=== PATIENT | male | born 1955 | race African-American/Black ===

== ENCOUNTER 2018-03-05 12:30 | Emergency (ER) | payer OTHER, MEDICAID ==
[~2018-03-05] VITALS: Ht 188 cm; Wt 84.0 kg
[~2018-03-05 12:30] MED LIST: ACET-3457 PO; ALPR0.252 PO; IBUP-2213 PO; LEVEMIR INSULIN SUBQ; METF500T7 PO; MULT-153; RAMI5CAP1 PO; SIMV20TA6 PO; VALS80CA PO
[2018-03-05 12:51] VITALS: BP 154/81
--- NOTE | 2018-03-05 12:51 | NUR ---
PT AMB TO BED 12
--- NOTE | 2018-03-05 12:52 | NUR ---
62Y/M BIB SELF C/O OF MULTIPLE BUMP ON TOP HIS HEAD. PT STATES "HE HAD BUMPS ON HEAD X 1 MONTH WITH YELLOWISH DISCHARGE; PT DENIES ANY INJURY; PT STATES HE HAS SPREAD THROUGHOUT THE MONTH AND HAS GOTTEN WORST." PT DENIES N/V/D; AAOX4 WITH EVEN AND STEADY GAIT; LUNGS CLEAR BL; HR EVEN AND REGULAR; PT DENIES ANY FEVER, CP, SOB, OR COUGH AT THIS TIME; PATIENT STATES PAIN OF 0/10 AT THIS TIME; VSS; PATIENT POSITIONED FOR COMFORT; HOB ELEVATED; BEDRAILS UP X1; BED DOWN. ER MD MADE AWARE OF PT STATUS. HX; HTN, DM, ACID REFLUX RX; DEXILANT, METFORMIN, DIOVAN
--- NOTE | 2018-03-05 13:00 | NUR ---
Patient being evaluated by physician at bedside.
[2018-03-05 13:28] VITALS: BP 152/80
--- NOTE | 2018-03-05 13:28 | NUR ---
Patient discharged with v/s stable. Written and verbal after care instructions given and explained. Patient alert, oriented and verbalized understanding of instructions. Ambulatory with steady gait. All questions addressed prior to discharge. ID band removed. Patient advised to follow up with PMD. Rx of bactrium ds and grifulvin given. Patient educated on indication of medication including possible reaction and side effects. Opportunity to ask questions provided and answered.
== END 2018-03-05 13:28 | disposition home or self-care (01) ==
LOC: MED 12:30
DX: B35.0 Tinea barbae and tinea capitis (principal); I10 Essential (primary) hypertension; E11.9 Type 2 diabetes mellitus without complications; F03.90 Unspecified dementia, unspecified severity, without behavioral disturbance, psychotic disturbance, mood disturbance, and anxiety; Z79.4 Long term (current) use of insulin; Z79.899 Other long term (current) drug therapy
CPT/HCPCS: 99283

== ENCOUNTER 2018-03-09 18:30 | Emergency (ER) | payer OTHER, MEDICAID ==
[~2018-03-09] VITALS: Ht 190.5 cm; Wt 81.6 kg
[2018-03-09 19:06] VITALS: BP 145/75
--- NOTE | 2018-03-09 21:35 | NUR ---
PT AMBULATED TO ER CHAIR E
[2018-03-09 23:20] VITALS: BP 133/83
--- NOTE | 2018-03-09 23:20 | NUR ---
Patient discharged with v/s stable. Written and verbal after care instructions given and explained. Patient alert, oriented and verbalized understanding of instructions. Ambulatory with steady gait. All questions addressed prior to discharge. ID band removed. Patient advised to follow up with PMD. Rx of Ketoconazole shampoo given. Patient educated on indication of medication including possible reaction and side effects. Opportunity to ask questions provided and answered.
== END 2018-03-09 23:20 | disposition home or self-care (01) ==
LOC: MED 18:30
DX: B35.0 Tinea barbae and tinea capitis (principal); E11.9 Type 2 diabetes mellitus without complications; I10 Essential (primary) hypertension; F03.90 Unspecified dementia, unspecified severity, without behavioral disturbance, psychotic disturbance, mood disturbance, and anxiety; Z88.0 Allergy status to penicillin; Z79.899 Other long term (current) drug therapy
CPT/HCPCS: 99282

== ENCOUNTER 2018-08-09 16:15 | Emergency (ER) | payer OTHER, MEDICAID ==
[~2018-08-09] VITALS: Ht 188 cm; Wt 80.7 kg
[2018-08-09 16:31] VITALS: BP 127/77
[2018-08-09] MEDS ORDERED: MORPHINE SULFATE 4 MG/ML SYR IVP ONE (20:20)
[2018-08-09] MEDS ORDERED: ONDANSETRON 4 MG/2 ML VIAL IVP ONE (20:20)
[2018-08-09] MEDS ORDERED: NACL 0.9% 1,000 ML IV SCH (20:20)
[2018-08-09 21:20] LABS: APPEARANCE,URINE CLEAR (CLEAR); BILIRUBIN,URINE NEGATIVE (NEGATIVE); BLOOD, URINE NEGATIVE (NEGATIVE); COLOR,URINE YELLOW (YELLOW); LEUKOCYTE ESTERASE ,URINE NEGATIVE (NEGATIVE); NITRITE, URINE NEGATIVE (NEGATIVE); PH,URINE 5.5 (5.0-9.0); UGLUCOSE 3+ (NEGATIVE)
[2018-08-09 21:21] LABS: RBC,URINE 0-5 (RARE) /HPF (0-5); WBC,URINE NONE SEEN /HPF (0-5)
[2018-08-09 21:28] LABS: BASOPHILS % (AUTO) 0.1 % (0.0-2.0); EOSINOPHILS % (AUTO) 0.1 % (0.0-4.0); HEMATOCRIT 45.8 % (36-52); HEMOGLOBIN 14.7 g/dL (12.0-18.0); LYMPHOCYTES # (AUTO) 5.7 K/uL (2.0-11.5); LYMPHOCYTES % (AUTO) 39.8 % (20.5-51.1); MEAN CORPUSCULAR HEMOGLOBIN 31 pg (27-31); MEAN CORPUSCULAR HGB CONC 32 g/dL (33-37); MEAN CORPUSCULAR VOLUME 95.5 fL (80-94); MONOCYTES # (AUTO) 0.2 K/uL (0.8-1.0); MONOCYTES % (AUTO) 1.5 % (1.7-9.3); NEUTROPHILS # (AUTO) 8.3 K/uL (1.8-7.7); NEUTROPHILS % (AUTO) 58.5 % (42.2-75.2); PLATELET COUNT (AUTO) 244 K/uL (140-450); RED BLOOD CELL COUNT(AUTO) 4.79 MIL/uL (4.20-6.10); RED CELL DISTRIBUTION WIDTH 13.8 % (11.6-13.7); WHITE BLOOD COUNT (AUTO) 14.2 K/uL (4.8-10.8)
[2018-08-09 21:31] LABS: ALBUMIN 4.4 g/dL (3.4-5.0); ANION GAP 17.4 (8-16); CARBON DIOXIDE 26.5 mmol/L (21-32); CREATININE 0.9 mg/dL (0.7-1.3); POTASSIUM 3.9 mmol/L (3.5-5.1); TOTAL BILIRUBIN 0.8 mg/dL (0.0-1.0)
[2018-08-10] MEDS ORDERED: MORPHINE SULFATE 4 MG/ML SYR IVP ONE (00:35)
[2018-08-10] MEDS ORDERED: ONDANSETRON 4 MG/2 ML VIAL IVP ONE (01:00)
[2018-08-10 03:29] VITALS: BP 159/86
== END 2018-08-10 03:29 | disposition home or self-care (01) ==
LOC: MED 16:15
DX: R10.9 Unspecified abdominal pain (principal); R11.2 Nausea with vomiting, unspecified; R19.7 Diarrhea, unspecified; E11.9 Type 2 diabetes mellitus without complications; I10 Essential (primary) hypertension; F03.90 Unspecified dementia, unspecified severity, without behavioral disturbance, psychotic disturbance, mood disturbance, and anxiety; Z88.0 Allergy status to penicillin; Z79.4 Long term (current) use of insulin
CPT/HCPCS: 36415; 74176; 80053; 81001; 83690; 85025; 96361; 96374; 96375; 96376; 99284; J2270; J2405; J7030

== ENCOUNTER 2018-08-26 12:24 | Emergency (ER) | payer OTHER, MEDICAID ==
[~2018-08-26] VITALS: Ht 180.3 cm; Wt 80.7 kg
[2018-08-26 12:41] VITALS: BP 122/78
[2018-08-26 13:57] VITALS: BP 125/73
== END 2018-08-26 13:45 | disposition home or self-care (01) ==
LOC: MED 12:24
DX: J02.9 Acute pharyngitis, unspecified (principal); E11.9 Type 2 diabetes mellitus without complications; F03.90 Unspecified dementia, unspecified severity, without behavioral disturbance, psychotic disturbance, mood disturbance, and anxiety; I10 Essential (primary) hypertension; Z88.0 Allergy status to penicillin; Z79.84 Long term (current) use of oral hypoglycemic drugs; Z79.899 Other long term (current) drug therapy
CPT/HCPCS: 71045; 99283; Q0092

== ENCOUNTER 2018-10-09 20:05 | Emergency (ER) | payer OTHER, MEDICAID ==
[~2018-10-09] VITALS: Ht 185.4 cm; Wt 78.5 kg
[~2018-10-09 20:05] MED LIST changes: -RAMI5CAP1 PO; +RAMI5CAP32 PO
[2018-10-09 20:14] VITALS: BP 132/72
--- NOTE | 2018-10-09 21:32 | NUR ---
Patient ambulated to bed 8. RN evaluating patient at bedside.
--- NOTE | 2018-10-09 21:32 | NUR ---
TO ED 08 WITH OUT ASSIST
--- NOTE | 2018-10-09 21:55 | NUR ---
Dr. Jackson evaluating patient at bedside.
--- NOTE | 2018-10-09 22:00 | NUR ---
PT PRESENTS TO THE ED C/O LOWER BACK PAIN. PT STATES HE WAS MOVING A BOX TODAY AND FELT A SHARP PAIN IN HIS LOWER BACK; RADIATES DOWN LEFT LEG. DENIES FALL OR TRAUMA. 8/10 PAIN WHEN WALKING. --DENIES N/V/D, CP, SOB OR LOC. SKIN IS PINK/WARM/DRY; AAOX4 WITH EVEN AND STEADY GAIT; LUNGS CLEAR BL; HR EVEN AND REGULAR; VSS; PATIENT POSITIONED FOR COMFORT; HOB ELEVATED; BEDRAILS UP X1; BED DOWN. ER MD MADE AWARE OF PT STATUS. PMH: DM, HTN, HYPERLIPIDEMIA, GERD RX: SEE LIST
[2018-10-09] MEDS ORDERED: fentaNYL 0.05 MG/ML VIAL IM ONE (22:15)
--- NOTE | 2018-10-09 22:34 | NUR ---
Dr. Jackson re-evaluating patient at bedside.
[2018-10-09 22:52] VITALS: BP 127/70
--- NOTE | 2018-10-09 22:52 | NUR ---
Patient discharged with v/s stable. Written and verbal after care instructions given and explained. Patient alert, oriented and verbalized understanding of instructions. Ambulatory with steady gait. All questions addressed prior to discharge. ID band removed. Patient advised to follow up with PMD. Rx of ROBAXIN, TRAMADOL, MEDROL DOSEPAK given. Patient educated on indication of medication including possible reaction and side effects. Opportunity to ask questions provided and answered.
== END 2018-10-09 22:52 | disposition home or self-care (01) ==
LOC: MED 20:05
DX: M54.5 Low back pain (principal); E11.9 Type 2 diabetes mellitus without complications; I10 Essential (primary) hypertension; Z79.84 Long term (current) use of oral hypoglycemic drugs; Z79.899 Other long term (current) drug therapy; Z88.0 Allergy status to penicillin
CPT/HCPCS: 72131; 81002; 96372; 99284; J3010

== ENCOUNTER 2019-06-02 14:06 | Emergency (ER) | payer OTHER, MEDICAID ==
[~2019-06-02] VITALS: Ht 188 cm; Wt 77.6 kg
[~2019-06-02 14:06] MED LIST changes: +METF500T19 PO; -METF500T7 PO; +SIMV-30 PO; -SIMV20TA6 PO
--- NOTE | 2019-06-02 14:12 | NUR ---
Patient ambulated to bed 3 with family. RN evaluating patient at bedside.
[2019-06-02 14:17] VITALS: BP 122/61
--- NOTE | 2019-06-02 14:17 | NUR ---
PATIENT PRESENTS TO ED WITH C/O LEFT BIG TOE PAIN X3 DAYS, DISCOLORATION AND PUS NOTED. HX OF DM, GERD. PATIENT STATES PAIN OF 9/10 WHEN WALKING ON THIS FOOT, VSS; PATIENT POSITIONED FOR COMFORT; HOB ELEVATED; BEDRAILS UP X2; BED DOWN. ER MD MADE AWARE OF PT STATUS.
[2019-06-02] MEDS ORDERED: KETOROLAC 60 MG/2 ML VIAL IM ONE (14:40)
--- NOTE | 2019-06-02 15:10 | NUR ---
Patient discharged with v/s stable. Written and verbal after care instructions given and explained. Rx of NORCO, BACTRIM given. Patient educated on indication of medication including possible reaction and side effects. All questions addressed prior to discharge. ID band removed. Patient advised to follow up with PMD.
[2019-06-02 15:14] VITALS: BP 122/61
== END 2019-06-02 15:10 | disposition home or self-care (01) ==
LOC: MED 14:06
DX: L03.032 Cellulitis of left toe (principal)
CPT/HCPCS: 82948; 96372; 99283; J1885

== ENCOUNTER 2019-06-26 20:54 | Emergency (ER) | payer OTHER, MEDICAID ==
[~2019-06-26] VITALS: Ht 190.5 cm; Wt 76.2 kg
[~2019-06-26 20:54] MED LIST changes: -SIMV-30 PO; +SIMV20TA6 PO
[2019-06-26 21:28] VITALS: BP 138/78
[2019-06-26] MEDS ORDERED: SODIUM CHLORIDE FLUSH 10 ML SYR IVF STA (21:32)
--- NOTE | 2019-06-26 21:56 | NUR ---
64 MALE C/O 05/20 ABD PAIN LUQ RADIATING TO RUQ. PT STATES DIARRHEA X2 DAYS. PT DENIES FEVER CHILLS. DENIES N/V @ THIS TIME. PT REPORTS WEIGHT LOSS 10-15 LBS. ABDOMEN SOFT AND SLIGHT TENDERNESS TO TOUCH UPON PALPATING LOWER ABDOMEN. ABDOMINAL SOUNDS HEARD ON ALL FOUR QUADRANTS. 05/20 PAIN NOTED. ERMD MADE AWARE. SIDE RAILSX1. HX:DM, GERD, HTN, BPH AX: PCN RX: METFORMIN; TAMSULOSIN;SIMVASTATIN; HYDROCODONE; VALSARTAN; DEXILANT Addendum: 06/26/19 at 9610 by AMBREEN PATIENT ALSO STATES THAT, " I GET CRAMPS AND THEN DIARRHEA".
--- NOTE | 2019-06-26 21:56 | NUR ---
PT TAKEN TO BED 4
[2019-06-26 22:25] LABS: BASOPHILS % (AUTO) 0.2 % (0.0-2.0); EOSINOPHILS % (AUTO) 0.2 % (0.0-4.0); HEMATOCRIT 38.3 % (36-52); HEMOGLOBIN 12.8 g/dL (12.0-18.0); MEAN CORPUSCULAR HEMOGLOBIN 32 pg (27-31); MEAN CORPUSCULAR HGB CONC 34 g/dL (33-37); MEAN CORPUSCULAR VOLUME 96.9 fL (80-94); MONOCYTES # (AUTO) 0.5 K/uL (0.8-1.0); MONOCYTES % (AUTO) 4.4 % (1.7-9.3); NEUTROPHILS # (AUTO) 3.1 K/uL (1.8-7.7); NEUTROPHILS % (AUTO) 29.2 % (42.2-75.2); PLATELET COUNT (AUTO) 238 K/uL (140-450); RED BLOOD CELL COUNT(AUTO) 3.95 MIL/uL (4.20-6.10); RED CELL DISTRIBUTION WIDTH 13.6 % (11.6-13.7); WHITE BLOOD COUNT (AUTO) 10.6 K/uL (4.8-10.8)
[2019-06-26 22:47] LABS: ANION GAP 12.7 (8-16); CARBON DIOXIDE 26.4 mmol/L (21-32); CREATININE 1.1 mg/dL (0.7-1.3); POTASSIUM 4.1 mmol/L (3.5-5.1)
[2019-06-26 22:53] LABS: ALBUMIN 3.6 g/dL (3.4-5.0); TOTAL BILIRUBIN 0.4 mg/dL (0.0-1.0)
[2019-06-26] MEDS ORDERED: KETOROLAC 30 MG/ML VIAL IVP ONE (23:10)
[2019-06-26] MEDS ORDERED: NACL 0.9% 500 ML IV ONE (23:10)
[2019-06-26 23:13] LABS: APPEARANCE,URINE SL CLOUDY (CLEAR); BILIRUBIN,URINE NEGATIVE (NEGATIVE); BLOOD, URINE NEGATIVE (NEGATIVE); COLOR,URINE YELLOW (YELLOW); LEUKOCYTE ESTERASE ,URINE NEGATIVE (NEGATIVE); NITRITE, URINE NEGATIVE (NEGATIVE); PH,URINE 5.5 (5.0-9.0); UGLUCOSE 3+ (NEGATIVE)
[2019-06-26 23:25] LABS: RBC,URINE 0 /HPF (0-5); WBC,URINE 0 /HPF (0-5)
--- NOTE | 2019-06-27 00:19 | NUR ---
Dr. Jackson examining patient.
[2019-06-27 00:40] VITALS: BP 132/71
--- NOTE | 2019-06-27 00:40 | NUR ---
DISCHARGE PAPERS GIVEN TO PT. PT STATES RELIEF. VSS. RX OF NORCO, NARCAN, AND DEXILANT GIVEN. SIDE EFFECTS EXPLAINED. INSTRUCTED TO F/U WITH PCP AND WHEN TO RETURN TO ER. PT VERBALLIZED UNDERSTANDING OF DC INSTRUCTIONS. ALL QUESTIONS ANSWERED.
== END 2019-06-27 00:40 | disposition home or self-care (01) ==
LOC: MED 20:54
DX: K57.30 Diverticulosis of large intestine without perforation or abscess without bleeding (principal); R19.7 Diarrhea, unspecified; E11.9 Type 2 diabetes mellitus without complications; I10 Essential (primary) hypertension; Z86.69 Personal history of other diseases of the nervous system and sense organs; Z98.890 Other specified postprocedural states; Z79.899 Other long term (current) drug therapy; Z79.1 Long term (current) use of non-steroidal anti-inflammatories (NSAID); Z79.891 Long term (current) use of opiate analgesic; Z79.4 Long term (current) use of insulin; Z88.0 Allergy status to penicillin
CPT/HCPCS: 36415; 74176; 80053; 81001; 82948; 83690; 85025; 96361; 96374; 99284; J1885; J7030

== ENCOUNTER 2019-07-27 16:47 | Emergency (ER) | payer OTHER, MEDICAID ==
[~2019-07-27] VITALS: Ht 188 cm; Wt 75.3 kg
[~2019-07-27 16:47] MED LIST changes: +SIMV-30 PO; -SIMV20TA6 PO
[2019-07-27 17:15] VITALS: BP 134/76
--- NOTE | 2019-07-27 19:20 | NUR ---
PT NOT IN ER LOBBY OR OUTSIDE OF ER LOBBY AT THIS TIME
--- NOTE | 2019-07-27 19:40 | NUR ---
PT NOT IN ER LOBBY OR OUTSIDE OF ER LOBBY AT THIS TIME
--- NOTE | 2019-07-27 20:12 | NUR ---
CALLED FOR PT, NO ANSWER IN ER LOBBY OR OUTSIDE OF ER LOBBY
== END 2019-07-27 19:20 | disposition left against medical advice (07) ==
LOC: MED 16:47
DX: Z53.21 Procedure and treatment not carried out due to patient leaving prior to being seen by health care provider (principal)

== ENCOUNTER 2020-02-25 17:58 | Emergency (ER) | payer OTHER, MEDICAID ==
[~2020-02-25] VITALS: Ht 190.5 cm; Wt 76.2 kg
[~2020-02-25 17:58] MED LIST changes: +METF-938 PO; -METF500T19 PO; -MULT-153; +MULT-2112
[2020-02-25 18:06] VITALS: BP 124/66
--- NOTE | 2020-02-25 18:17 | NUR ---
64 Y/O M C/C ABDOMINAL PAIN, ALL QUADRANTS, GAS PAIN SENSATION, 10/10 PAIN SCALE X 3 DAYS. PT DENIES CONSTIPATION. LAST BM TODAY IN THE AM, URINATING WITH NO PROBLEM, NO LOSS OF APPETITE. ALLERGIES PNC. HX DM,NEUROPATHY,GERD,PROSTATE. RX METFORMIN,NORCO,DEXELIN. NO NVD. SIDE RAIL X1.
[2020-02-25] MEDS ORDERED: KETOROLAC 30 MG/ML VIAL IVP ONE (18:30)
--- NOTE | 2020-02-25 19:01 | NUR ---
PT TAKEN TO RAD VIA WHEELCHAIR
[2020-02-25 19:12] LABS: BASOPHILS % (AUTO) 0.3 % (0.0-2.0); EOSINOPHILS % (AUTO) 0.1 % (0.0-4.0); HEMOGLOBIN 13.5 g/dL (12.0-18.0); LYMPHOCYTES # (AUTO) 7.2 K/uL (2.0-11.5); LYMPHOCYTES % (AUTO) 69.1 % (20.5-51.1); MEAN CORPUSCULAR HEMOGLOBIN 32 pg (27-31); MEAN CORPUSCULAR HGB CONC 33 g/dL (33-37); MEAN CORPUSCULAR VOLUME 97.9 fL (80-94); MONOCYTES # (AUTO) 0.4 K/uL (0.8-1.0); MONOCYTES % (AUTO) 3.6 % (1.7-9.3); NEUTROPHILS # (AUTO) 2.8 K/uL (1.8-7.7); NEUTROPHILS % (AUTO) 26.9 % (42.2-75.2); PLATELET COUNT (AUTO) 234 K/uL (140-450); RED BLOOD CELL COUNT(AUTO) 4.18 MIL/uL (4.20-6.10); RED CELL DISTRIBUTION WIDTH 13.4 % (11.6-13.7); WHITE BLOOD COUNT (AUTO) 10.4 K/uL (4.8-10.8)
--- NOTE | 2020-02-25 19:24 | NUR ---
RECEIVED REPORT FROM TESS NUNES. WILL CONT CARE AT THIS TIME.
--- NOTE | 2020-02-25 19:24 | NUR ---
REPORT GIVEN TO ERICK PULIDO FOR CONTINUITY OF CARE
[2020-02-25 19:34] LABS: APPEARANCE,URINE CLEAR (CLEAR); BILIRUBIN,URINE NEGATIVE (NEGATIVE); BLOOD, URINE NEGATIVE (NEGATIVE); COLOR,URINE YELLOW (YELLOW); LEUKOCYTE ESTERASE ,URINE NEGATIVE (NEGATIVE); NITRITE, URINE NEGATIVE (NEGATIVE); UGLUCOSE 3+ (NEGATIVE)
[2020-02-25 19:39] LABS: ALBUMIN 3.9 g/dL (3.4-5.0); ANION GAP 14.2 (8-16); CARBON DIOXIDE 28.8 mmol/L (21-32); TOTAL BILIRUBIN 0.3 mg/dL (0.0-1.0)
[2020-02-25 20:20] LABS: RBC,URINE NONE SEEN /HPF (0-5); WBC,URINE NONE SEEN /HPF (0-5)
[2020-02-25 21:00] VITALS: BP 145/74
--- NOTE | 2020-02-25 21:00 | NUR ---
DPatient discharged with v/s stable. Written and verbal after care instructions given and explained. Patient alert, oriented and verbalized understanding of instructions. Ambulatory with steady gait. All questions addressed prior to discharge. ID band removed. Patient advised to follow up with PMD. Rx of COLACE given. Patient educated on indication of medication including possible reaction and side effects. Opportunity to ask questions provided and answered.
== END 2020-02-25 21:00 | disposition home or self-care (01) ==
LOC: MED 17:58
DX: R10.84 Generalized abdominal pain (principal); K31.84 Gastroparesis; E11.65 Type 2 diabetes mellitus with hyperglycemia; K21.9 Gastro-esophageal reflux disease without esophagitis; I10 Essential (primary) hypertension; Z88.0 Allergy status to penicillin; Z79.899 Other long term (current) drug therapy
CPT/HCPCS: 36415; 74176; 80053; 81001; 83690; 85025; 96374; 99284; J1885

== ENCOUNTER 2020-04-14 18:51 | Emergency (ER) | payer OTHER, MEDICAID ==
[~2020-04-14] VITALS: Ht 188 cm; Wt 77.1 kg
[2020-04-14 18:52] VITALS: BP 110/67
--- NOTE | 2020-04-14 19:00 | NUR ---
ambulated to [facility] with steady gait.
--- NOTE | 2020-04-14 19:28 | NUR ---
65 year old male presenting to ed for medication refill of lyrica. states using it for neuropathy. denies any s/sx. denies any injury or trauma. pmhx: htn, dm allx: pcn
[2020-04-14 19:29] VITALS: BP 110/67
--- NOTE | 2020-04-14 19:45 | NUR ---
Patient discharged with v/s stable. Written and verbal after care instructions given and explained. Patient alert, oriented and verbalized understanding of instructions. Ambulatory with steady gait. All questions addressed prior to discharge. ID band removed. Patient advised to follow up with PMD. Rx of lyrica given. Patient educated on indication of medication including possible reaction and side effects. Opportunity to ask questions provided and answered.
== END 2020-04-14 19:45 | disposition home or self-care (01) ==
LOC: MED 18:51
DX: E11.40 Type 2 diabetes mellitus with diabetic neuropathy, unspecified (principal); K21.9 Gastro-esophageal reflux disease without esophagitis; I10 Essential (primary) hypertension; R56.9 Unspecified convulsions; Z76.0 Encounter for issue of repeat prescription; Z88.0 Allergy status to penicillin; Z79.899 Other long term (current) drug therapy
CPT/HCPCS: 99281

== ENCOUNTER 2020-07-06 13:50 | Emergency (ER) | payer OTHER, MEDICAID ==
[~2020-07-06] VITALS: Ht 185.4 cm; Wt 77.6 kg
[2020-07-06 13:56] VITALS: BP 155/68
[2020-07-06] MEDS ORDERED: cefTRIAXone 1,000 MG VIAL ONE (14:10)
[2020-07-06 14:13] VITALS: BP 155/68
--- NOTE | 2020-07-06 14:13 | NUR ---
Patient discharged with v/s stable. Written and verbal after care instructions given and explained. Patient alert, oriented and verbalized understanding of instructions. Ambulatory with steady gait. All questions addressed prior to discharge. ID band removed. Patient advised to follow up with PMD. Rx of DEXILANT given. Patient educated on indication of medication including possible reaction and side effects. Opportunity to ask questions provided and answered. PT SEEN AND DC BY DR. CLEMENTS.
== END 2020-07-06 14:13 | disposition home or self-care (01) ==
LOC: MED 13:50
DX: K21.9 Gastro-esophageal reflux disease without esophagitis (principal); E11.9 Type 2 diabetes mellitus without complications; I10 Essential (primary) hypertension; R56.9 Unspecified convulsions; Z88.0 Allergy status to penicillin; Z79.899 Other long term (current) drug therapy
CPT/HCPCS: 99283; J0696

== ENCOUNTER 2020-07-22 15:44 | Emergency (ER) | payer OTHER, MEDICAID ==
[~2020-07-22] VITALS: Ht 190.5 cm; Wt 80.7 kg
[2020-07-22 16:19] VITALS: BP 164/73
[2020-07-22 17:22] VITALS: BP 164/73
--- NOTE | 2020-07-22 17:23 | NUR ---
Patient discharged with v/s stable. Written and verbal after care instructions given and explained. Patient alert, oriented and verbalized understanding of instructions. Ambulatory with steady gait. All questions addressed prior to discharge. ID band removed. Patient advised to follow up with PMD. Rx of LYRICA given. Patient educated on indication of medication including possible reaction and side effects. Opportunity to ask questions provided and answered.
== END 2020-07-22 17:23 | disposition home or self-care (01) ==
LOC: MED 15:44
DX: G62.9 Polyneuropathy, unspecified (principal); Z76.0 Encounter for issue of repeat prescription; E11.9 Type 2 diabetes mellitus without complications; K21.9 Gastro-esophageal reflux disease without esophagitis; I10 Essential (primary) hypertension; Z88.0 Allergy status to penicillin; Z79.4 Long term (current) use of insulin; Z79.899 Other long term (current) drug therapy
CPT/HCPCS: 99281

== ENCOUNTER 2021-02-03 02:30 | Emergency (ER) | payer OTHER, MEDICAID ==
[~2021-02-03] VITALS: Ht 190.5 cm; Wt 77.1 kg
[2021-02-03 02:33] VITALS: BP 127/79
--- NOTE | 2021-02-03 02:33 | NUR ---
TO BED AMBULATORY
--- NOTE | 2021-02-03 03:01 | NUR ---
PT BIB SELF FOR C/O "HEAVY HEAD AND EYES" X 1 DAY. PT REPORTS 2 DAYS AGO HE TOOK NORCO AND TYLENOL FOR HIS NEUROPATHY PAIN, FOLLOWING HE FELT HIS HEART RATE WAS INCREASED AND HE STATES HE BEGAN BLEEDING AT THE GUMS. PT REPORTS "PACING THE APARTMENT" BECAUSE HE WAS "SCARED HALF TO ." PT DENIES BLEEDING GUMS AT THIS TIME, NO BLEEDING NOTED UPON VISUAL ASSESSMENT. PTS VSS. MED HX: DM, HTN, GERD ALLERGIES: PENICILLINS
--- NOTE | 2021-02-03 03:08 | NUR ---
ERMD AT BEDSIDE.
--- NOTE | 2021-02-03 03:25 | NUR ---
PT COLLECTED URINE. OWNER GIVEN TO MUSHROOM CUTTER AT BEDSIDE.
--- NOTE | 2021-02-03 03:26 | NUR ---
LAB AT BEDSIDE.
[2021-02-03 03:34] LABS: APPEARANCE,URINE CLEAR (CLEAR); BILIRUBIN,URINE NEGATIVE (NEGATIVE); BLOOD, URINE NEGATIVE (NEGATIVE); COLOR,URINE YELLOW (YELLOW); LEUKOCYTE ESTERASE ,URINE NEGATIVE (NEGATIVE); NITRITE, URINE NEGATIVE (NEGATIVE); UGLUCOSE 3+ (NEGATIVE)
--- NOTE | 2021-02-03 03:40 | NUR ---
PT TAKEN TO RAD.
[2021-02-03 03:44] LABS: HEMATOCRIT 39.7 % (36-52); HEMOGLOBIN 13.3 g/dL (12.0-18.0); MEAN CORPUSCULAR HEMOGLOBIN 32 pg (27-31); MEAN CORPUSCULAR HGB CONC 33 g/dL (33-37); MEAN CORPUSCULAR VOLUME 96.2 fL (80-94); PLATELET COUNT (AUTO) 278 K/uL (140-450); RED BLOOD CELL COUNT(AUTO) 4.12 MIL/uL (4.20-6.10); RED CELL DISTRIBUTION WIDTH 13.3 % (11.6-13.7); WHITE BLOOD COUNT (AUTO) 12.5 K/uL (4.8-10.8)
[2021-02-03 03:46] LABS: BARBITURATE, URINE NEGATIVE ng/ml (NEG <=200); BENZODIAZEPINE, URINE NEGATIVE ng/mL (NEG <=200); CANNABINOID, URINE NEGATIVE ng/mL (NEG <=50); COCAINE, URINE NEGATIVE ng/mL (NEG <=300)
[2021-02-03 03:47] LABS: OPIATE, URINE NEGATIVE ng/mL (NEG <=2000); PHENCYCLIDINE SCREEN,URINE NEGATIVE ng/mL (NEG <=25)
[2021-02-03 03:52] LABS: RBC,URINE NONE SEEN /HPF (0-5); WBC,URINE 0-5 /HPF (0-5)
[2021-02-03 03:59] LABS: EOSINOPHILS % (MANUAL) 3 % (0-4); LYMPHOCYTES % (MANUAL) 54 % (20-46); MONOCYTES % (MANUAL) 7 % (5-12)
--- NOTE | 2021-02-03 04:02 | NUR ---
PT RETURNED FROM RAD.
[2021-02-03 04:06] LABS: ALBUMIN 3.7 g/dL (3.4-5.0); ANION GAP 16.2 (8-16); CARBON DIOXIDE 23.9 mmol/L (21-32); POTASSIUM 4.1 mmol/L (3.5-5.1); THYROID STIMULATING HORMONE 0.89 uIU/mL (0.34-3.74); TOTAL BILIRUBIN 0.5 mg/dL (0.0-1.0)
[2021-02-03] MEDS ORDERED: INSULIN REGULAR, HUMAN 100 UNIT/ML VIAL SUBQ ONE (04:40)
[2021-02-03] MEDS ORDERED: EMPA10TA PO (05:05)
[2021-02-03 05:11] VITALS: BP 122/78
--- NOTE | 2021-02-03 05:11 | NUR ---
Patient discharged with v/s stable. Written and verbal after care instructions given and explained by Dr. Christine. Patient alert, oriented and verbalized understanding of instructions. Ambulatory with steady gait. All questions addressed prior to discharge. ID band removed. Patient advised to follow up with by PMD. Rx of empagliflozin given. Patient educated on indication of medication including possible reaction and side effects by Dr. Christine. Opportunity to ask questions provided and answered.
== END 2021-02-03 05:11 | disposition home or self-care (01) ==
LOC: MED 02:30
DX: E11.9 Type 2 diabetes mellitus without complications (principal); K21.9 Gastro-esophageal reflux disease without esophagitis; I10 Essential (primary) hypertension; Z88.0 Allergy status to penicillin
CPT/HCPCS: 36415; 70450; 71045; 80053; 80305; 81001; 84443; 84484; 85025; 99285; J1815

== ENCOUNTER 2021-08-03 19:37 | Emergency (ER) | payer OTHER, MEDICAID ==
[~2021-08-03] VITALS: Ht 186.7 cm; Wt 79.4 kg
[~2021-08-03 19:37] MED LIST changes: +EMPA10TA PO
[2021-08-03 19:45] VITALS: BP 135/73
--- NOTE | 2021-08-03 20:12 | NUR ---
66 YO M BIB SELF WITH C/C OF 10/10 MID ABD PAIN X5DAYS. +DIARRHEA. DENIES N/V. PT STATES FOOD WORSENS PAIN AND IS UNABLE TO HOLD STOOL IN. PT REPORTS INCREASED BURPING WITH A BAD TASTE. STATES HE HAS BEEN FEELING MORE TIRED AND SOB WITH ACTIVITY AND TALKING. PT HAS A HX OF DIVERTICULITIS AND THESE SYMPTOMS SEEM FAMILIAR TO HIM. PT ON MONITOR. BED LOCKED IN LOWEST POSITION, SIDE RAILS X2 FOR SAFETY. HX:DIVERTICULITIS ALLERGIES:PCN
[2021-08-03] MEDS ORDERED: MORPHINE SULFATE 4 MG/ML SYR IVP ONE (20:20)
--- NOTE | 2021-08-03 20:29 | NUR ---
PT IS IN RR.
--- NOTE | 2021-08-03 20:35 | NUR ---
PT BACK IN BED.
[2021-08-03 20:49] LABS: BASOPHILS % (AUTO) 0.3 % (0.0-2.0); EOSINOPHILS % (AUTO) 0.1 % (0.0-4.0); HEMATOCRIT 38.4 % (36-52); HEMOGLOBIN 12.9 g/dL (12.0-18.0); LYMPHOCYTES # (AUTO) 4.1 K/uL (2.0-11.5); LYMPHOCYTES % (AUTO) 50.9 % (20.5-51.1); MEAN CORPUSCULAR HEMOGLOBIN 32 pg (27-31); MEAN CORPUSCULAR HGB CONC 34 g/dL (33-37); MEAN CORPUSCULAR VOLUME 95.8 fL (80-94); MONOCYTES # (AUTO) 0.5 K/uL (0.8-1.0); MONOCYTES % (AUTO) 6.6 % (1.7-9.3); NEUTROPHILS # (AUTO) 3.4 K/uL (1.8-7.7); NEUTROPHILS % (AUTO) 42.1 % (42.2-75.2); PLATELET COUNT (AUTO) 216 K/uL (140-450); RED BLOOD CELL COUNT(AUTO) 4.01 MIL/uL (4.20-6.10)
[2021-08-03 20:57] LABS: APPEARANCE,URINE CLEAR (CLEAR); BILIRUBIN,URINE NEGATIVE (NEGATIVE); BLOOD, URINE NEGATIVE (NEGATIVE); COLOR,URINE YELLOW (YELLOW); LEUKOCYTE ESTERASE ,URINE NEGATIVE (NEGATIVE); NITRITE, URINE NEGATIVE (NEGATIVE); UGLUCOSE 3+ (NEGATIVE)
[2021-08-03 21:11] LABS: ALBUMIN 4.1 g/dL (3.4-5.0); ANION GAP 16.7 (8-16); CARBON DIOXIDE 24.3 mmol/L (21-32); CREATININE 0.9 mg/dL (0.6-1.3); TOTAL BILIRUBIN 0.6 mg/dL (0.0-1.0)
--- NOTE | 2021-08-03 21:14 | NUR ---
PT TAKEN TO CT.
--- NOTE | 2021-08-03 21:17 | NUR ---
LAB REPORTED COVID POSITIVE.
[2021-08-03] MEDS ORDERED: NACL 0.9% 1,000 ML IV ONE ×2 (21:30→21:55)
--- NOTE | 2021-08-03 22:12 | NUR ---
[facility] [phone]
--- NOTE | 2021-08-03 22:52 | NUR ---
PT SITTING UP IN BED TALKING ON HIS PHONE. ALL NEEDS MET AT THIS TIME. VSS. PT IS IN STABLE CONDITION. BED LOCKED IN LOWEST POSITION AND SIDE RAILS X2 FOR SAFETY.
[2021-08-03] MEDS ORDERED: ACET-2619 PO (23:06)
[2021-08-03] MEDS ORDERED: ONDA-188 PO (23:06)
[2021-08-03 23:30] VITALS: BP 153/79
--- NOTE | 2021-08-03 23:30 | NUR ---
Patient discharged with v/s stable. Written and verbal after care instructions given and explained. Patient alert, oriented and verbalized understanding of instructions. Ambulatory with steady gait. All questions addressed prior to discharge. ID band removed. Patient advised to follow up with PMD. Rx of TYLENOL AND ZOFRAN given. Patient educated on indication of medication including possible reaction and side effects. Opportunity to ask questions provided and answered.
== END 2021-08-03 23:30 | disposition home or self-care (01) ==
LOC: MED 19:37
DX: U07.1 COVID-19 (principal); R11.2 Nausea with vomiting, unspecified; R10.30 Lower abdominal pain, unspecified
CPT/HCPCS: 36415; 74176; 80053; 81003; 82150; 83690; 85025; 87040; 87426; 96361; 96374; 99284; J2270; J7030